=== PATIENT | female | born 1965 | race Caucasian/White ===

== ENCOUNTER 2019-04-03 10:52 | Day surgery (SDC) | payer BC ==
[2019-04-02 16:39] VITALS: BMI 23.4
[~2019-04-03 10:52] MED LIST: Dexamethasone 20 MG/5 ML VIAL ONE; EPHEDRINE 25 MG/5 ML SYRINGE ONE; Glycopyrrolate 0.2 MG/ML 5 ML SYRINGE ONE; Lidocaine 1% PF 5 ML VIAL ONE; Ondansetron PF 4 MG/2 ML Vial ONE; PROPOFOL 200 MG/20 ML VIAL ONE; Rocuronium Bromide 10 MG/ML (10ML VIAL) ONE
[2019-04-03] MEDS ORDERED: Famotidine/PF 20 mg/2ml Vial ONE (11:03)
[2019-04-03] MEDS ORDERED: Gabapentin 300 MG CAP ONE (11:03)
[2019-04-03] MEDS ORDERED: CeleCOXIB 100 MG CAP ONE (11:03)
[2019-04-03 11:37] LABS: Mean Corpuscular HGB CONC 35.1 g/dL (32.0-36.0); Mean Corpuscular Hemoglobin 32.7 pg (27.0-31.0); Mean Platelet Volume 10.1 fL (7.4-10.4); Platelet Count 173 thou/uL (130-400); RBC Distribution Width 11.4 % (11.5-14.5); Red Blood Cell (RBC) Count 4.28 mill/uL (4.20-5.40); White Blood Cell (WBC) Count 5.3 thou/uL (4.8-10.8)
[2019-04-03] MEDS ORDERED: Bupivacaine PF 0.5% 30 ML VIAL ONE (13:23)
[2019-04-03] MEDS ORDERED: Lidocaine 1% w/Epinephrine 1:100K 20 ML VIAL ONE (13:23)
[2019-04-03] MEDS ORDERED: Fentanyl 250 MCG/5 ML VIAL ONE (13:31)
[2019-04-03] MEDS ORDERED: Meperidine HCl/PF 25 MG/ML VIAL SLOW IVP PRN (14:39)
[2019-04-03] MEDS ORDERED: Promethazine HCl 25 MG/ML VIAL SLOW IVP PRN (14:39)
[2019-04-03] MEDS ORDERED: Promethazine HCl 25 MG/ML VIAL IM PRN (14:39)
[2019-04-03] MEDS ORDERED: PACU-Morphine 4MG/ML VIAL SLOW IVP PRN (14:39)
[2019-04-03] MEDS ORDERED: Fentanyl 100 MCG/2 ML VIAL ONE (16:00)
[2019-04-03] MEDS ORDERED: HYDROcodone/Acetaminophen 5/325 mg Tablet ONE ×2 (18:02→18:38)
--- NOTE | 2019-04-04 08:57 | OP ---
DATE OF PROCEDURE: 04/03/2019 PREOPERATIVE DIAGNOSES: 1. Pelvic pain. 2. Postmenopausal bleeding. POSTOPERATIVE DIAGNOSES: 1. Pelvic pain. 2. Postmenopausal bleeding. PROCEDURES PERFORMED: Robotic-assisted total laparoscopic hysterectomy and bilateral salpingectomy. ANESTHESIA: General endotracheal. SURGEON: Abigail Garcia MD CHECKROOM CHIEF: Kimberli Boone PA-C ESTIMATED BLOOD LOSS: 50 mL. IVF: 1500 mL of crystalloid. URINE OUTPUT: 220 mL, clear urine. PATHOLOGY: Uterus, cervix, and bilateral fallopian tubes. COMPLICATIONS: None. DRAINS: Babcock catheter. FINDINGS: Globally enlarged uterus 10-week size, absent fallopian tube and ovary. Normal fallopian tube and ovary. Filmy adhesions of the rectosigmoid to the pelvic sidewall. DESCRIPTION OF PROCEDURE: The patient was taken to the operating room, where general anesthesia was obtained without difficulty. The patient was prepped and draped in a sterile fashion in the dorsal lithotomy position, where a Babcock catheter was placed in the bladder. A speculum was placed in the vagina. The anterior lip of the cervix was grasped with a single-tooth tenaculum. The cervix was dilated with Kike dilators and sounded to 9 cm. The JOSE MARIA manipulator was assembled with a 4 cm colpotomizer ring and an 8 cm tip and inserted into the uterus. The tenaculum and speculum were removed out of the vagina. Legs were placed in low lithotomy. Attention was turned to the abdomen. A mixture of 0.5% Marcaine plain with 1% lidocaine with epinephrine was infiltrated into the umbilicus, and a Veress needle was inserted into the abdomen, after skin incision was made in the umbilicus, noting an opening pressure of 0 mmHg, pneumoperitoneum was obtained without difficulty. The Veress needle was removed. The 12 mm trocar was inserted into the abdomen and confirmed placement with robotic camera. Steep Trendelenburg was obtained. Right and left lower quadrant 8 mm robotic trocars were placed after infiltrating with anesthetic under direct visualization. A right upper quadrant 11 mm port was placed under direct visualization after infiltrating with anesthetic. The robot was docked. The right robotic arm contained monopolar scissors, the left robotic arm contained a fenestrated bipolar. Surgeon console took control. There were increased adhesions of the sigmoid and rectosigmoid colon to the left pelvic sidewall. These were taken down with a mixture of sharp and cautery dissection, ensuring clear windows. There were no extensive or densely adherent areas of the bowel to the left pelvic sidewall. This took in approximately 10 minutes. The right fallopian tube was then grasped and elevated. The mesosalpinx was sequentially clamped, cauterized with the fenestrated, and transected with the scissors sharply on cautery. The medial fallopian tube was clamped across and cauterized and transected and removed out of the abdomen. The utero-ovarian was cauterized multiple times and transected and taken down to the level of the round ligament that was cauterized in the midportion with the fenestrated and transected with the scissors on cautery. The posterior leaf of the broad ligament was dropped down to the level of the uterosacral. The retroperitoneum was dissected off the uterine vessels. The anterior leaf of the broad ligament was then incised down to the level of the vesicouterine peritoneum and the uterine vessels were further skeletonized and defined. The bladder flap was further created undermining with the fenestrated. However, there was some scarring. Attention was then turned to the left side, where the left fallopian tube was grasped and elevated. The mesosalpinx was sequentially clamped, cauterized, transected with the fenestrated followed by the scissors until the medial fallopian tube was met that was clamped, cauterized, and transected, and removed out of the abdomen. The utero-ovarian was cauterized multiple times and incised. Hemostasis was achieved. The round ligament was cauterized in midportion and incised and the posterior leaf of the broad ligament was then incised down to the level of the uterosacral using the fenestrated to bluntly dissect the retroperitoneum off the underlying structures. The anterior leaf of the broad ligament was also dropped, incised down to the level of the bladder flap using the fenestrated to bluntly dissect the retroperitoneum with the pushing and spreading technique. At that time, the bladder was backfilled to note the limitations of the bladder with saline by the hospital nursing assistant surgeon and carefully the vesicouterine peritoneum was dissected off the lower uterine segment ensuring a clear window using the fenestrated to undermine and this took approximately 10 additional minutes. Once the pubocervical fascia was visualized, the pubocervical fascia was scored across with the scissors and then bluntly dissected down to ensure the bladder or adventitia was dissected down below the level of the colpotomizer ring. Once the vessels had been adequately skeletonized, they were cauterized bilaterally and colpotomy was performed anteriorly followed by posteriorly and carried around laterally and ensuring hemostasis. The uterus placed into the vagina, and the vaginal cuff was irrigated. The scissors were traded out for the needle school bus driver/teacher assistant, and the vaginal cuff was closed with a 2-0 Stratafix barbed suture in the running fashion, incorporating vaginal mucosa and posterior peritoneum in each bite, and running back for a second layer. The needle was then cut and removed out of the abdomen and the vaginal cuff was irrigated copiously and low pressure check was performed noting hemostasis and all instruments removed out of the abdomen. Pneumoperitoneum was released. The robot was undocked and the fascia of the umbilical port was closed with 0-Monocryl in a [id number] fashion. The skin was closed with 4-0 Monocryl in a subcuticular fashion. Dermabond was applied. The vaginal cuff was checked and noted to be hemostatic with excellent closure. All instruments were removed out of the vagina. The patient tolerated the procedure well. Sponge, lap, and needle counts were correct x2. The patient was taken to the recovery room in stable condition. The patient received Ancef 2 g prior to the procedure. Job ID: [id number]
== END 2019-04-03 18:45 | disposition home or self-care (01) ==
LOC: SDC 10:52
PROVIDERS: ATTEND Student in an Organized Health Care Education/Training Program
PROC: 0UT94ZZ Resection of Uterus, Percutaneous Endoscopic Approach (ICD-10-PCS; principal; 2019-04-03)
PROC: 0UT74ZZ Resection of Bilateral Fallopian Tubes, Percutaneous Endoscopic Approach (ICD-10-PCS; principal; 2019-04-03)
DX: D25.9 Leiomyoma of uterus, unspecified (principal); N72 Inflammatory disease of cervix uteri; N80.0 Endometriosis of uterus; N83.8 Other noninflammatory disorders of ovary, fallopian tube and broad ligament; F41.9 Anxiety disorder, unspecified; K59.09 Other constipation; Z79.899 Other long term (current) drug therapy; Z88.6 Allergy status to analgesic agent
CPT/HCPCS: 36415; 85027; 86850; 86900; 86901; 88307; J0690; J1100; J2001; J2405; J2704; J3010; S0020; S0028

== ENCOUNTER 2021-12-31 13:50 | Outpatient (CLI) | payer OTHER | END 2021-12-31 13:51 | disposition home or self-care (01) | LOC: BICMAMMO 13:50 | PROVIDERS: ATTEND Family Medicine | DX: N64.89 Other specified disorders of breast (principal) | CPT/HCPCS: G0279 ==